=== PATIENT | female | born 1960 ===

== ENCOUNTER 2018-07-21 11:26 | Outpatient (REF) | payer OTHER, SELFPAY ==
[2018-07-21 19:09] LABS: Anion Gap 10.1 mmol/L (3-11); BUN 17 mg/dL (7-18); CO2 27.9 mmol/L (21.0-32.0); CREATININE 0.92 mg/dL (0.55-1.02); Calcium 9.2 mg/dL (8.5-10.1); Chloride 100 mmol/L (98-107); Cholesterol 247 mg/dL (50-200); Glucose 100 mg/dL (70-100); HDL Cholesterol 48 mg/dL (40-60); LDL CHOLESTEROL 169 mg/dL (<100); Sodium 138 mmol/L (136-145); Triglyceride 161 mg/dL (30-150)
[2018-07-21 19:13] LABS: Hemoglobin A1C 6.5 % (4.5-6.2)
[2018-07-25 12:44] LABS: ALT 46 U/L (12-78); AST 26 U/L (15-37)
== END 2018-07-21 11:46 ==
LOC: NCHCN 11:26
PROVIDERS: PCP Nurse Practitioner Family; Visit Provider Nurse Practitioner Family
DX: E03.9 Hypothyroidism, unspecified (principal); I10 Essential (primary) hypertension; E78.5 Hyperlipidemia, unspecified; Z00.00 Encounter for general adult medical examination without abnormal findings
CPT/HCPCS: 80048; 80061; 83721; 83036; 84443; 84450; 84460

== ENCOUNTER 2018-08-22 10:03 | Outpatient (REF) | payer OTHER, SELFPAY ==
[2018-08-22 19:20] LABS: ALT 44 U/L (12-78); AST 26 U/L (15-37)
== END 2018-08-22 10:23 ==
LOC: NCHCN 10:03
PROVIDERS: PCP Nurse Practitioner Family; Visit Provider Nurse Practitioner Family
DX: E78.5 Hyperlipidemia, unspecified (principal)
CPT/HCPCS: 84450; 84460

== ENCOUNTER 2019-01-17 12:11 | Outpatient (REF) | payer OTHER, SELFPAY ==
[2019-01-17 19:15] LABS: ALT 46 U/L (12-78); AST 24 U/L (15-37); Calculated LDL 103 mg/dL; Cholesterol 181 mg/dL (50-200); HDL Cholesterol 47 mg/dL (40-60); Triglyceride 158 mg/dL (30-150)
[2019-01-17 19:34] LABS: Hemoglobin A1C 6.2 % (4.5-6.2)
== END 2019-01-17 12:31 ==
LOC: NCHCN 12:11
PROVIDERS: PCP Nurse Practitioner Family; Visit Provider Nurse Practitioner Family
DX: E78.5 Hyperlipidemia, unspecified (principal); E11.9 Type 2 diabetes mellitus without complications
CPT/HCPCS: 80061; 83721; 83036; 84450; 84460

== ENCOUNTER 2019-08-24 10:04 | Outpatient (REF) | payer OTHER, SELFPAY ==
[2019-08-24 19:30] LABS: Hemoglobin A1C 6.1 % (3.8-5.6)
[2019-08-24 19:38] LABS: Calculated LDL 127 mg/dL (<100); Cholesterol 202 mg/dL (<200); HDL Cholesterol 54 mg/dL (40-60)
[2019-08-24 20:00] LABS: TSH 3.31 uIU/mL (0.36-3.74); Triglyceride 107 mg/dL (<150)
== END 2019-08-24 10:24 ==
LOC: NCHCN 10:04
PROVIDERS: PCP Nurse Practitioner Family; Visit Provider Nurse Practitioner Family
DX: E78.5 Hyperlipidemia, unspecified (principal); I10 Essential (primary) hypertension; E03.9 Hypothyroidism, unspecified; E11.9 Type 2 diabetes mellitus without complications
CPT/HCPCS: 80061; 83036; 84443